=== PATIENT | female | born 1980 | race Caucasian/White ===

== ENCOUNTER → 2020-05-18 15:10 | Outpatient (CLI) | payer OTHER, SELFPAY ==
--- NOTE | ~2020-05-18 | MM_ITS ---
EXAMINATION: MM screening alesha BI w errol HISTORY: Screening mammogram TECHNIQUE: Craniocaudal and mediolateral oblique 3-D tomosynthesis images were obtained and synthetic 2-D images were generated. CAD analysis was submitted and interpreted. COMPARISON: 04/01/2019 bilateral digital screening mammogram 04/02/2018 diagnostic right digital mammogram and limited right breast ultrasound 03/22/2018 bilateral digital screening mammogram BREAST PARENCHYMAL COMPOSITION: The breasts are almost entirely fatty. FINDINGS: There is no evidence of suspicious mass, calcification, or architectural distortion to sugg est malignancy in either breast. There has been no suspicious interval change. IMPRESSION: 1. No mammographic evidence of malignancy. 2. Recommend routine screening mammography in one year. BI-RADS Category 1: Negative Reviewed, dictated and finalized at location A. [employer]
== END ==
PROVIDERS: PCP Internal Medicine; Visit Provider Nurse Practitioner Obstetrics & Gynecology
DX: Z12.31 Encounter for screening mammogram for malignant neoplasm of breast (principal)
CPT/HCPCS: 77063; 77067

== ENCOUNTER → 2021-07-01 15:56 | Outpatient (CLI) | payer BC, SELFPAY ==
--- NOTE | ~2021-07-01 | MM_ITS ---
EXAMINATION: MM screening alesha BI w errol HISTORY: Screening mammogram TECHNIQUE: Craniocaudal and mediolateral oblique 3-D tomosynthesis images were obtained and synthetic 2-D images were generated. CAD analysis was submitted and interpreted. COMPARISON: 05/18/2020, 04/01/2019 bilateral screening mammogram examinations 04/02/2018 diagnostic right mammogram and limited right breast ultrasound 03/22/2018 bilateral screening mammogram BREAST PARENCHYMAL COMPOSITION: The breasts are almost entirely fatty. FINDINGS: There is no evidence of suspicious mass, calcification, or architectural distortion to sugg est malignancy in either breast. There has been no suspicious interval change. IMPRESSION: 1. No mammographic evidence of malignancy. 2. Recommend routine screening mammography in one year. BI-RADS Category 1: Negative Reviewed, dictated and finalized at location A.
== END ==
PROVIDERS: PCP Internal Medicine; Visit Provider Nurse Practitioner Obstetrics & Gynecology
DX: Z12.31 Encounter for screening mammogram for malignant neoplasm of breast (principal)
CPT/HCPCS: 77063; 77067

== ENCOUNTER 2022-03-08 00:56 | Day surgery (SDC) | payer BC, SELFPAY ==
--- NOTE | 2022-02-22 09:07 | PC.NURSE ---
Addendum entered by Carlyn Mena RN 02/22/22 09:13: SERTRALINE ENTERED IN DAY OF SURGERY MEDICATIONS, PT INSTRUCTED TO TAKE ESCITALOPRAM Original Note: Report to the Outpatient Waiting Room, entrance under the green pavilion located off [facility], at time 0800_ on date 03/08/22_. Planned Procedure Time: 1000__. Time changes happen often and if your time is changed the preop area will call you the afternoon before. - You and your visitor will be asked to self-screen and do not enter if you have any COVID symptoms. - Only one visitor is requested with a max of two and NO children visitors are allowed at this time. - The patient visitor may be requested to leave or wait in car when not with patient due to distancing restrictions. - A mask is optional within the hospital. Patients may have clear liquids (water, carbonated beverages, clear teas, apple juice) until 3 hours prior to surgery with a maximum of 20 ounces. - No food from midnight until time of surgery - Infants may have breast milk until 4 hours before surgery, infant formula 6 hours prior to surgery. - Children will be allowed to drink immediately following surgery. If applicable, please bring a bottle or sippy cup to assist with drinking. Juice, water, soda, and popsicles are readily available. For infants on formula, please bring formula the day of surgery. Pacifiers are allowed. Take the following medications with a SIP of water the morning of surgery: ___SERTRALINE Medications to discontinue per physician __NONE Date to take last dose Please no make-up, nail syriac, hairspray, perfume, deodorant, or body powder the day of surgery. No jewelry (including any body piercings) or valuables the day of surgery, leave them at home. Please take a shower or bath the night before, or the morning of, surgery with an antibacterial soap. Wear comfortable, loose fitting clothing. Children are encouraged to wear pajamas. - Jewelry must be removed prior to entering the operating room. Rings and piercings that are not removed may be cut off. - The hospital will not accept responsibility for valuables. - Please leave all valuables, including medications, at home the day of surgery. If you are going home after surgery, a licensed stacker driver must drive you home. - NO public transportation without another adult if you receive anesthesia. - We recommend that an adult stay with you for 24 hours following discharge. - We also recommend that you do not drive, make important decision, drink alcoholic beverages, or take any drugs that were not prescribed by your health care provider for at least 24 hours after your discharge time. For Pediatric surgeries, we recommend two adults accompany the child home. Follow any additional instructions given to you from your surgeon. If you or anyone in your household have experienced Covid symptoms in the past week, please notify your surgeon or the nurse liaison at the phone number below for possible testing. Telephone instructions given to _GARCÍA _and asked if any additional questions and then verbalized understanding. Patient advised to call surgeon office or pre surgery nurse liaison [phone] if any additional questions.
[2022-03-08] VITALS (11 sets, daily range): BP systolic 115–139; BP diastolic 70–85; PULSE 65–86; RESP 14–19; TEMP 36.4–36.7; O2SAT 95–100
--- NOTE | 2022-03-08 07:55 | WPDANESEPPF ---
Anes - Initial Pre Proc Eval Procedure: Operation Date: 03/08/22 10:00 Proposed Procedures p Hysteroscopy Dilation and Curettage Anika Endometrial Ablation - Waqas Cain MD Date/Time: 03/08/22 07:55 Surgeon: Waqas Cain MD Pre Op Diagnosis: menorrhagia Patient Data Age: 41 Gender: F Height: Weight: Allergies Allergy/AdvReac Type Severity Reaction Status Date / Time naproxen Allergy Mild unknown Verified 11/12/18 10:21 Penicillins Allergy Unknown Hives / Verified 11/12/18 10:21 Red Face Home Medications Medication Instructions Recorded Confirmed Type cetirizine 10 mg capsule (Zyrtec) 10 mg PO DAILY PRN ALLERGIES 02/22/22 02/22/22 History escitalopram oxalate 10 mg tablet 10 mg PO DAILY 02/22/22 02/22/22 History norethindrone acetate 1 mg-ethinyl 1 tablet PO DAILY 02/22/22 02/22/22 History estradiol 20 mcg tablet (Junel) omeprazole 20 mg capsule,delayed 20 mg PO DAILY 02/22/22 02/22/22 History release oxybutynin chloride 5 mg tablet 5 mg PO BID 02/22/22 02/22/22 History Patient hx anesthesia problems: none Family hx anesthesia problems: none Results Review: All pre-operative results and documents have been reviewed as part of the pre-operative evaluation. [facility] Past Medical History Medical History (Updated 03/08/22 @ 07:58 by Orestes Santiago DO) Anxiety GERD (gastroesophageal reflux disease) Surgical History Surgical History (Updated 03/08/22 @ 07:58 by Orestes Santiago DO) History of appendectomy History of cholecystectomy Social History Social History Smoking packs per day: 1 Smoking cigarettes per day: 20.0 Years smoked: 10 Smoking pack-years: 10.00 Smoking status: Former smoker Additional smoking assessment comments: STOPPED 2001 Alcohol intake: current Alcohol use details: 2-3 DRINKS PER YEAR Substance use: never Living arrangements: with family Anes - Eval Final PreProcedure Day of Procedure 03/08/22 07:55 Patient weight: obese Heart: regular rate and rhythm Lungs: clear to auscultation Airway: Mallampati scale class II Neurological: alert and oriented Last oral intake: >/= 8 hours ASA classification: II Emergent: no Anesthetic plan: proceed Anesthesia type and monitoring: general ETT and standard monitoring Results Review: All pre-operative results and documents have been reviewed as part of the pre-operative evaluation. Informed Consent: The patient's anesthetic plan and its attendant risks and benefits were discussed with the patient/family/POA. Questions were solicited and answers provided to the satisfaction of the patient/family/POA.
[2022-03-08] MEDS: ACETAMINOPHEN 500 MG TABLET 1000 MG PO (08:22)
[2022-03-08] MEDS: LACTATED RINGERS 1,000 ML 30 ML IV CONT ×2 (08:22→11:25)
--- NOTE | 2022-03-08 09:28 | PM.IMHP ---
H&P: HPI History of Present Illness Date/Time: 03/08/22 09:28 Chief Complaint: Menorrhagia Narrative: this patient is a 41-year-old female with menorrhagia. We have agreed to perform hysteroscopy D&C and endometrial ablation. She understands that injuries could occur during surgeries and procedures that result in hospitalization, more surgery and severe illness. She understands there is a risk of hemorrhage infection. She denies any chest pain or shortness of breath. She denies any nausea, fever, vomiting, chills. Review of Systems Review of Systems: All systems reviewed & are unremarkable except as noted in HPI and below Constitutional: Constitutional: Denies chills, Denies fatigue, Denies fever(s) and Denies weakness Eyes: Eyes: Denies blurry vision, Denies change in vision, Denies loss of peripheral vision, Denies loss of vision, Denies other visual disturbances and Denies eye pain ENT: Denies vertigo, Denies dizziness, Denies hearing loss, Denies mouth pain, Denies nasal obstruction, Denies neck mass and Denies neck pain Cardiovascular: Cardiovascular: Denies chest pain, Denies diaphoresis, Denies syncope, Denies leg edema and Denies dyspnea Respiratory: Respiratory: Denies chest congestion, Denies cough, Denies hemoptysis, Denies dyspnea and Denies wheezing Gastrointestinal: Gastrointestinal: Denies abdominal pain, Denies constipation, Denies diarrhea, Denies nausea and Denies vomiting Genitourinary: Genitourinary: Denies hematuria, Denies change in libido, Denies nocturia, Denies genital lesions, Denies flank pain and Denies urinary urgency Musculoskeletal: Musculoskeletal: Denies abnormal gait, Denies back pain, Denies myalgias, Denies arthralgias, Denies joint swelling, Denies muscle weakness and Denies neck pain Integumentary/Breasts: Skin/Breast: Denies swelling, Denies breast pain, Denies breast mass, Denies dry skin, Denies nipple discharge, Denies unusual bruising and Denies jaundice Neurologic: Denies Neuro-related abnormal movements, Denies Abnormal speech present, Denies abnormal gait, Denies behavioral changes, Denies confusion, Denies vertigo, Denies dizziness, Denies syncope, Denies loss of vision, Denies memory loss, Denies convulsions and Denies weakness Psychiatric: Psychiatric: Denies abnormal sleep pattern, Denies behavioral changes, Denies change in libido, Denies confusion, Denies depression, Denies anhedonia and Denies memory loss Endocrine: Endocrine: Reports no additional endocrine complaints, Denies change in libido and Denies fatigue Hematologic/Lymphatic: Hematologic/Lymphatic: Reports no additional hematologic/lymphatic complaints Allergic/Immunologic: Allergic/Immunologic: Reports no additional allergic/immunologic complaints and Denies wheezing PMFSH Past Medical History Medical History (Updated 03/08/22 @ 09:30 by Waqas Cain MD) Anxiety GERD (gastroesophageal reflux disease) Surgical History Surgical History (Updated 03/08/22 @ 07:58 by Orestes Santiago DO) History of appendectomy History of cholecystectomy Social History Social History Smoking packs per day: 1 Smoking cigarettes per day: 20.0 Years smoked: 10 Smoking pack-years: 10.00 Smoking status: Former smoker Additional smoking assessment comments: STOPPED 2001 Alcohol intake: current Alcohol use details: 2-3 DRINKS PER YEAR Substance use: never Living arrangements: with family Meds Home Medications and Allergies Home Medications Medication Instructions Recorded Confirmed Type cetirizine 10 mg capsule (Zyrtec) 10 mg PO DAILY PRN ALLERGIES 02/22/22 03/08/22 History escitalopram oxalate 10 mg tablet 10 mg PO DAILY 02/22/22 03/08/22 History norethindrone acetate 1 mg-ethinyl 1 tablet PO DAILY 02/22/22 03/08/22 History estradiol 20 mcg tablet (Junel) oxybutynin chloride 5 mg tablet 5 mg PO BID 02/22/22 03/08/22 History Allergies Allergy/AdvReac Type Severity Reaction
--- NOTE | 2022-03-08 10:01 | WPDHPUPDATE1 ---
History and Physical Update Update Date/Time: 03/08/22 10:01 History and Physical has been reviewed, including an updated exam of the patient. There are NO changes in the patient's condition. Risks, benefits, and alternatives have been discussed and questions answered. Patient agrees to proceed with procedure.
[2022-03-08] MEDS: LIDOCAINE HCL 1% LOCAL INJ 20 ML VIAL 30 ML INFILTRATE (10:25)
--- NOTE | 2022-03-08 11:33 | W.PM.PROC2 ---
Procedure Note - Detailed Date of Procedure 03/08/22 Pre-op Diagnosis menorrhagia Post-op Diagnosis Same Procedure Performed hysteroscopy with endometrial ablation, diagnostic laparoscopy Surgeon Waqas Cain MD Anesthesia MAC Indications Severe menorrhagia Findings Normal vulva vagina and cervix. Normal endometrium. Perforation of the uterus at the left cornual a, diagnostic laparoscopy and examination the bowel were performed showed no evidence of an injury to the bowel that includes the small intestine and the lower large bowel -rectum, and sigmoid colon, cecum Description of Procedure The patient was taken to the operating room. She was prepped and draped in the dorsal lithotomy position after induction of mac anesthesia. A speculum was placed in the vagina. Cervix grasped with a tenaculum. The cervix was dilated to about 1 cm. The hysteroscope was inserted. The above findings were noted. Endometrial curettage was performed with a medium-size curette. All surfaces of the endometrium were affected by the curettage. The specimens were collected and sent to pathology. Measurements were taken of the uterus and cervix. The uterine length was then entered into the hand piece of the Anika device. The device was inserted into the intrauterine cavity. The array of the device was expanded. The balloon cuff was inflated. A good seal was achieved. The energy and safety cycles were initiated and completed. The array was collapsed and the instrument was withdrawn after deflating the balloon cuff. Hysteroscope was reinserted. Perforation was observed. At the fundus of the uterus in the cornual area There was a small hole and the distention of the uterus could not be achieved, though the surfaces observed pill or well desiccated. The hysteroscope was removed. She was prepped and draped in the dorsal lithotomy position after induction general anesthesia.? A 5 mm incision was made with a scalpel on the abdominal skin in the left upper quadrant of the abdomen.? A 5 mm trocar was inserted into the intra-abdominal cavity under direct visualization the scope.? In the same fashion a 5 mm left lower quadrant trocar was inserted and a 5 mm infraumbilical trocar was inserted. bowel was examined. The loops of bowel that extended into the pelvis were examined in detail. The rectum the sigmoid colon and the cecum were all examined carefully. No evidence of any burned bowel. The pelvis was irrigated.? The pneumoperitoneum was reduced.? The trocars were removed.? Skin was closed with subcuticular 4 micro.? The patient's incisions were covered with Dermabond.? She was taken recovery room in stable condition.? Sponge lap and needle counts were correct x2.? Estimated Blood Loss 15 Pathology Yes Complications Other complications ( perforation of the uterus) Condition Stable Disposition Same day
[2022-03-08] MEDS: fentaNYL CITRATE INJ (*CRX) 100 MCG/2 ML VIAL 25 MCG IV PUSH ×6 (11:44→12:27)
--- NOTE | 2022-03-08 11:59 | SUR.PHASEI ---
1154: Simple mask removed.
[2022-03-08] MEDS: ONDANSETRON INJ 4 MG/2 ML VIAL IV PUSH (13:08)
--- NOTE | 2022-03-08 13:16 | SUR.PHASEII ---
dr joe at pt side and discussing procedure with pt and spouse.
--- NOTE | 2022-03-08 13:29 | SUR.PHASEII ---
dr joe gave ot work release form.
[2022-03-08] MEDS: oxyCODONE HCL (*CRX) 5 MG TAB IR PO (13:45)
== END 2022-03-08 14:45 | disposition home or self-care (01) ==
PROVIDERS: PCP Internal Medicine; Visit Provider Obstetrics & Gynecology
PROC: 0U5B8ZZ Destruction of Endometrium, Via Natural or Artificial Opening Endoscopic (ICD-10-PCS; CPT 58563; principal; 2022-03-08 10:00)
PROC: (CPT 49320; 2022-03-08 10:00)
DX: N92.0 Excessive and frequent menstruation with regular cycle (principal); N99.71 Accidental puncture and laceration of a genitourinary system organ or structure during a genitourinary system procedure; K21.9 Gastro-esophageal reflux disease without esophagitis; F41.9 Anxiety disorder, unspecified; Z87.891 Personal history of nicotine dependence; E66.9 Obesity, unspecified
CPT/HCPCS: 58563; 49320; A9270; J1100; J2250; J2405; J2704; J2710; J3010; J7030; J7120

== ENCOUNTER → 2022-09-24 11:19 | Outpatient (CLI) | payer BC, SELFPAY ==
--- NOTE | ~2022-09-24 | MM_ITS ---
EXAMINATION: MM screening alesha BI w errol HISTORY: Screening mammogram TECHNIQUE: Craniocaudal and mediolateral oblique 3-D tomosynthesis images were obtained and synthetic 2-D images were generated. CAD analysis was submitted and interpreted. COMPARISON: July 01, 2021, May 18, 2020, April 05, 2019 bilateral screening mammogram examination s BREAST PARENCHYMAL COMPOSITION: The breasts are almost entirely fatty. FINDINGS: There is no evidence of suspicious mass, calcification, or architectural distortion to sugg est malignancy in either breast. There has been no suspicious interval change. IMPRESSION: 1. No mammographic evidence of malignancy. 2. Recommend routine screening mammography in one year. BI-RADS Category 1: Negative Reviewed, dictated and finalized at location A.
== END ==
PROVIDERS: PCP Nurse Practitioner Obstetrics & Gynecology; Visit Provider Nurse Practitioner Obstetrics & Gynecology
DX: Z12.31 Encounter for screening mammogram for malignant neoplasm of breast (principal)
CPT/HCPCS: 77063; 77067

== ENCOUNTER 2023-02-10 01:25 | Day surgery (SDC) | payer BC, SELFPAY ==
[2023-02-01 10:28] VITALS: BMI 35.4
--- NOTE | 2023-02-01 10:32 | PC.NURSE ---
Report to the Outpatient Waiting Room, entrance under the green pavilion located off [facility], at time 0830 on date 02/10/23. Planned Procedure Time: 1030. Time changes happen often and if your time is changed the preop area will call you the afternoon before. - You and your visitor will be asked to self-screen and do not enter if you have any COVID symptoms. - A mask is optional within the hospital at this time. Patients may have clear liquids (water, carbonated beverages, clear teas, apple juice) until 3 hours prior to surgery with a maximum of 20 ounces. - No food from midnight until time of surgery Take the following medications with a SIP of water the morning of surgery: ESCITALOPRAM, CONTROL DO NOT STOP ANY OF YOUR OTHER PRESCRIPTION MEDICATIONS PRIOR TO SURGERY ?EXCEPT THE FOLLOWING Medications to discontinue per physician: N/A Date to take last dose: N/A Please no make-up, nail bulgarian, hairspray, perfume, deodorant, or body powder the day of surgery. No jewelry (including any body piercings) or valuables the day of surgery, leave them at home. Please take a shower or bath the night before, or the morning of, surgery with an antibacterial soap. Wear comfortable, loose fitting clothing. - Jewelry must be removed prior to entering the operating room. Rings and piercings that are not removed may be cut off. - The hospital will not accept responsibility for valuables. - Please leave all valuables, including medications, at home the day of surgery. If you are going home after surgery, a licensed tow bar driver must drive you home. - NO public transportation without another adult if you receive anesthesia. - We recommend that an adult stay with you for 24 hours following discharge. - We also recommend that you do not drive, make important decision, drink alcoholic beverages, or take any drugs that were not prescribed by your health care provider for at least 24 hours after your discharge time. Follow any additional instructions given to you from your surgeon. If you or anyone in your household have experienced Covid symptoms in the past week, please notify your surgeon or the nurse liaison at the phone number below for possible testing. Telephone instructions given to PT Petrona JESSICA and asked if any additional questions and then verbalized understanding. Patient advised to call surgeon office or pre surgery nurse liaison [phone] if any additional questions.
--- NOTE | 2023-02-04 18:32 | PM.IMHP ---
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 Alcohol intake: current Alcohol use details: VERY RARE Substance use: never Substance use type: does not use Living arrangements: with family Spiritual care concerns: No Meds Home Medications and Allergies Home Medications Medication Instructions Recorded Confirmed Type cetirizine 10 mg capsule (Zyrtec) 10 mg PO DAILY PRN ALLERGIES 02/22/22 02/01/23 History escitalopram oxalate 10 mg tablet 10 mg PO DAILY 02/22/22 02/01/23 History norethindrone acetate 1 mg-ethinyl 1 tablet PO DAILY 02/22/22 02/01/23 History estradiol 20 mcg tablet (Junel) Allergies Allergy/AdvReac Type Severity Reaction Status Date / Time naproxen Allergy Severe Difficulty Verified 02/01/23 10:27 Breathing Penicillins AdvReac Intermediate Hives / Verified 02/01/23 10:27 Red Face Exam Narrative: NAD normal breathing + urethral mobility A+O x3 Assessment and Plan Assessment and plan (1) MARY ANN (stress urinary incontinence, female): Code(s): N39.3 - Stress incontinence (female) (male) Status: Acute Assessment and Plan: urethral sling. Risks, bennifits, alternative discussed and documented in office chart
--- NOTE | 2023-02-09 15:18 | P.PNAN_ITS ---
Anes - Initial Pre Proc Eval Procedure: Operation Date: 02/10/23 10:30 Proposed Procedures p Urethral Sling - Wm Chaudhry MD Date/Time: 02/09/23 15:18 Surgeon: Wm Chaudhry MD Pre Op Diagnosis: Stress Incont Patient Data Age: 42 Gender: F Height: 1.6 m Weight: 90.75 kg Allergies Allergy/AdvReac Type Severity Reaction Status Date / Time naproxen Allergy Severe Difficulty Verified 02/10/23 09:35 Breathing Penicillins AdvReac Intermediate Hives / Verified 02/10/23 09:35 Red Face Home Medications Medication Instructions Recorded Confirmed Type cetirizine 10 mg capsule (Zyrtec) 10 mg PO DAILY PRN ALLERGIES 02/22/22 02/01/23 History escitalopram oxalate 10 mg tablet 10 mg PO DAILY 02/22/22 02/10/23 History norethindrone acetate 1 mg-ethinyl 1 tablet PO DAILY 02/22/22 02/10/23 History estradiol 20 mcg tablet (Junel) Patient hx anesthesia problems: none Family hx anesthesia problems: none Results Review: All pre-operative results and documents have been reviewed as part of the pre- operative evaluation. 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 Alcohol intake: current Alcohol use details: VERY RARE Substance use: never Substance use type: does not use Living arrangements: with family Spiritual care concerns: No Anes - Eval Final PreProcedure Day of Procedure 02/09/23 15:18 Patient weight: obese Heart: regular rate and rhythm Lungs: clear to auscultation Airway: Mallampati scale class II Neurological: alert and oriented Last oral intake: >/= 8 hours ASA classification: II Emergent: no Anesthetic plan: proceed Anesthesia type and monitoring: general GIVS and standard monitoring Results Review: All pre-operative results and documents have been reviewed as part of the pre- operative evaluation. Informed Consent: The patient's anesthetic plan and its attendant risks and benefits were discussed with the patient/family/POA. Questions were solicited and answers provided to the satisfaction of the patient/family/POA.
[2023-02-10] VITALS (12 sets, daily range): BP systolic 109–130; BP diastolic 61–81; PULSE 70–118; RESP 14–16; TEMP 36.6; O2SAT 96–100; BMI 36.7
--- NOTE | 2023-02-10 07:20 | WPDHPUPDATE1 ---
History and Physical Update Update Date/Time: 02/10/23 07:20 History and Physical has been reviewed, including an updated exam of the patient. There are NO changes in the patient's condition. Risks, benefits, and alternatives have been discussed and questions answered. Patient agrees to proceed with procedure.
[2023-02-10] MEDS: LACTATED RINGERS 1,000 ML 30 ML IV CONT ×2 (09:25→13:05)
[2023-02-10] MEDS: levoFLOXacin 500 MG/D5W 100 ML 500 MG/100 ML BAG 100 MG IVPB (11:00)
[2023-02-10] MEDS: BUPIVACAINE/EPINEPHRINE 0.5% 50 ML VIAL 10 ML INFILTRATE (11:16)
--- NOTE | 2023-02-10 11:25 | SUR.OPER ---
ebl 30
--- NOTE | 2023-02-10 11:31 | W.PM.PROC2 ---
Procedure Note - Detailed Date of Procedure 02/10/23 Pre-op Diagnosis Stress Incont Post-op Diagnosis Same Procedure Performed mid urethral sling cystoscopy Surgeon Wm Chaudhry MD Anesthesia General Indications This is a female with confirm stress urinary incontinence. She desires surgical correction. She understands the risks of bleeding, infection, injury to the urinary tract, vaginal mesh extrusion, urinary tract mesh erosion, obstructive voiding requiring a secondary procedure, hip and leg pain, dyspareunia, inability to improve overactive bladder symptoms. She agrees to proceed. Description of Procedure She was correctly identified. Informed consent obtained. She was brought the operating room. She was given appropriate anesthesia. She was given appropriate perioperative antibiotics. A time-out performed. I marked out the site of the inner thigh incisions. I anesthetized the skin and made those incisions. I anesthetized the anterior vaginal wall over the mid urethra. Of note. Somewhat poor tissue quality was noted especially given her young age. I felt tissue quality was adequate for the procedure. I made a 1 cm incision. I dissected out laterally taking great care not to injure the refilled vaginal wall. I passed the helical trocars. First on the left. Then on the right. I did this from the thigh incision towards the vaginal incision. The sling was connected to the trocars and brought out through the thigh incision. I tensioned the sling appropriately. I cut and the plastic sheaths. I then closed the incision with 2 0 Vicryl. On cystoscopy there is no tumors or surgical artifact. There was no surgical artifact in the urethra. I cut the excess sling material. Close incisions with glue. She was awakened and transferred to the PACU in stable condition. Implants Urethral sling Drains No Packing No Pathology None sent Complications No immediate complications Condition Stable Disposition PACU
[2023-02-10] MEDS: ONDANSETRON INJ 4 MG/2 ML VIAL IV PUSH (12:33)
--- NOTE | 2023-02-10 18:17 | SUR.PHASEII ---
Patient tried to void at least 3 times and couldn't. RN bladder scanned patient and got 257mL according to bladder scanner. RN called Dr. Chaudhry at 1538 and told him she couldn't pee. He said to insert and 16F Leon and send patient home with catheter and his office would call them to set up a time to removed Leon on Monday. RN inserted the the Leon and demonstrated how care it.
== END 2023-02-10 16:40 | disposition home or self-care (01) ==
PROVIDERS: PCP Physician Assistant; Referring Provider Obstetrics & Gynecology Gynecology; Visit Provider Urology
PROC: (CPT 57288; principal; 2023-02-10 10:30)
DX: N39.3 Stress incontinence (female) (male) (principal); F41.9 Anxiety disorder, unspecified; K21.9 Gastro-esophageal reflux disease without esophagitis; E66.9 Obesity, unspecified; Z68.36 Body mass index [BMI] 36.0-36.9, adult; Z87.891 Personal history of nicotine dependence; Z90.49 Acquired absence of other specified parts of digestive tract
CPT/HCPCS: 57288; C1771; J1956; J2250; J2405; J2704; J3010; J7030; J7120

== ENCOUNTER 2024-05-29 10:55 | Outpatient (CLI) | payer BC, SELFPAY ==
--- NOTE | ~2024-05-29 | MM_ITS ---
EXAMINATION: MM screening alesha BI w errol HISTORY: Screening TECHNIQUE: Craniocaudal and mediolateral oblique 3-D tomosynthesis images were obtained and synthetic 2-D images were generated. CAD analysis was submitted and interpreted. COMPARISON: Comparison to multiple prior studies sequentially, with oldest reviewed study dated 03/22. BREAST PARENCHYMAL COMPOSITION: Not dense: There are scattered areas of fibroglandular density. FINDINGS: There is no evidence of suspicious mass, calcification, or architectural distortion to sugg est malignancy in either breast. There has been no suspicious interval change. IMPRESSION: 1. No mammographic evidence of malignancy. 2. Recommend routine screening mammography in one year. BI-RADS Category 1: Negative Reviewed, dictated and finalized at location B.
== END 2024-05-29 10:56 | disposition home or self-care (01) ==
LOC: MICIMG 10:57
PROVIDERS: PCP Obstetrics & Gynecology Gynecology; Visit Provider Obstetrics & Gynecology Gynecology
DX: Z12.31 Encounter for screening mammogram for malignant neoplasm of breast (principal)
CPT/HCPCS: 77063; 77067